=== PATIENT | female | born 1955 | race Two or more races ===

== ENCOUNTER 2018-11-04 21:21 | Emergency (ER) | payer OTHER ==
[~2018-11-04] VITALS: Ht 154.9 cm; Wt 69.4 kg
[2018-11-05] MEDS ORDERED: IBUPROFEN 600 MG TAB PO ONE (01:15)
[2018-11-05 01:27] VITALS: BP 122/65
[2018-11-05] MEDS ORDERED: HYDROcodone-ACET 5/325MG TAB PO ONE (01:30)
== END 2018-11-05 01:36 | disposition home or self-care (01) ==
LOC: ER 21:25
DX: S52.502A Unspecified fracture of the lower end of left radius, initial encounter for closed fracture (principal); W19.XXXA Unspecified fall, initial encounter; Y93.89 Activity, other specified; Y99.8 Other external cause status; Y92.89 Other specified places as the place of occurrence of the external cause
CPT/HCPCS: 29125; 73110